=== PATIENT | male | born 1955 | race Caucasian/White ===

== ENCOUNTER 2021-03-30 14:06 | Outpatient (CLI) | payer BC | END 2021-03-30 14:07 | disposition home or self-care (01) | LOC: TBSIIMAG 14:06 | PROVIDERS: ATTEND Neurological Surgery | DX: S12.600D Unspecified displaced fracture of seventh cervical vertebra, subsequent encounter for fracture with routine healing (principal) | CPT/HCPCS: 72040 ==

== ENCOUNTER 2022-04-06 14:54 | Outpatient (CLI) | payer BC | END 2022-04-06 14:55 | disposition home or self-care (01) | LOC: TBSIIMAG 14:54 | PROVIDERS: ATTEND Neurological Surgery | DX: M54.2 Cervicalgia (principal) | CPT/HCPCS: 72050 ==